=== PATIENT | female | born 1985 | race African-American/Black ===

== ENCOUNTER 2018-08-03 12:28 | Observation (INO) ==
[2018-08-03] MEDS ORDERED: ONDANSETRON 4 MG/2 ML VIAL IV PRN (14:02)
[2018-08-03] MEDS ORDERED: ACETAMINOPHEN 325 MG TABLET PO PRN (14:02)
[2018-08-03] MEDS ORDERED: SODIUM CHLORIDE 0.9% 1,000 ML IV PRN (14:04)
[2018-08-03 15:25] LABS: % Iron Saturation 15.2 % (18-50); Ferritin 4.4 ng/ml (8-252)
[2018-08-04 01:01] LABS: Hematocrit 27.4 VOL% (35.7-47.0); Hemoglobin 7.9 GM/DL (12.0-16.0)
[2018-08-04 10:06] VITALS: BP 97/79
== END 2018-08-04 11:00 | disposition home or self-care (01) ==
LOC: N.5E
PROVIDERS: ADMIT Family Medicine; ATTEND Family Medicine

== ENCOUNTER 2018-08-11 05:39 | Inpatient (IN) ==
[2018-08-09 12:53] LABS: Apearance,Urine CLEAR (Clear); Bacteria,Urine Occasional /HPF (Few); Bilirubin,Urine Negative (Negative); Blood, Urine Moderate mg/dL (Negative); Glucose,Urine (UA) Negative (Negative); Ketones,Urine Negative (Negative); Nitrite,Urine Negative (Negative); Protein,Urine Negative; Squamous Epithelial Cell,Urine Occasional /HPF (0-10); Trichomonas,Urine Occasional /HPF (<1); Urine Color Yellow (Yellow); Urine Specific Gravity 1.006 (1.001-1.035)
[2018-08-09 12:54] LABS: RBC,Urine 3 /HPF (0-4); Urine Urobilinogen < 2.0 EU/DL (0.2-1.0)
[2018-08-09 13:02] LABS: Basophils % 0.2 % (0.0-0.8); Eosinophils # 0.1 10*3/uL (0.0-0.87); Eosinophils % 0.9 % (0.00-10.9); Hematocrit 34.3 VOL% (35.7-47.0); Hemoglobin 10.1 GM/DL (12.0-16.0); Immature Granulocytes % 1.1 %; Immature Granulocytes Absolute 0.09 #; Lymphocytes % 11.8 % (21.3-54.2); Mean Corpuscular HGB Conc 29.4 GM/DL (32-36); Mean Corpuscular Volume 82.3 FL (87-102); Mean Platelet Volume 11.5 FL (9.6-12.0); Monocytes % 4.2 % (1.7-12.7); Neutrophils % 81.8 % (38.7-73.9); Platelet Count 295 T/CUMM (130-400); Red Blood Count 4.17 MC/CUMM (3.8-5.5); Red Cell Distribution Width 23.2 % (9.3-17.3); White Blood Count 8.2 T/CUMM (4-12)
[2018-08-09 13:03] LABS: Platelet Estimate Normal
[2018-08-09 13:04] LABS: Anisocytosis 1+
[2018-08-09 13:09] LABS: Alanine Aminotransferase 16 U/L (13-56); Albumin 4.2 G/DL (3.4-5.0); Alkaline Phosphatase 63 U/L (45-117); Aspartate Amino Transferase 14 U/L (0-37); Bilirubin,Total < 0.39 MG/DL (0.2-1.0); Blood Urea Nitrogen 8 MG/DL (7-18); Calcium 9.1 MG/DL (8.5-10.1); Glucose 124 MG/DL (74-106); HDL Cholesterol 36 MG/DL (40-60); Osmolality,Calculated 275.5 MOS/KG (273-304); Risk Ratio 4.83; Total Protein 8.7 G/DL (6.4-8.3); Triglycerides 122 MG/DL (2-150); VLDL CHOLESTEROL 24.4 MG/DL
[2018-08-09 13:56] LABS: HIV Antigen/Antibody Result Nonreactive (Nonreactive)
[2018-08-11] MEDS ORDERED: BUPIVACAINE 0.5% 50 ML VIAL ONE (06:04)
[2018-08-11] MEDS ORDERED: EPINEPHrine 1 MG/ML VIAL ONE (06:05)
[2018-08-11] MEDS ORDERED: DEXAMETHASONE 4 MG/1 ML VIAL ONE ×2 (06:05→09:21)
[2018-08-11] MEDS ORDERED: AMPICILLIN/SULBACTAM 3,000 MG VIAL ONE (06:06)
[2018-08-11] MEDS: LACTATED RINGERS 1,000 ML IV SCH ×4 (06:16→19:58)
[2018-08-11] MEDS ORDERED: ACETAMINOPHEN 500 MG TABLET PO ONE (06:24)
[2018-08-11] MEDS ORDERED: GABAPENTIN 400 MG CAPSULE PO ONE (06:24)
[2018-08-11] MEDS ORDERED: AMPICILLIN/SULBACTAM 3,000 MG in SODIUM CHLORIDE 0.9% 100 ML IV ONE (06:30)
[2018-08-11] MEDS ORDERED: ACETAMINOPHEN 500 MG TABLET ONE (06:39)
[2018-08-11] MEDS ORDERED: GABAPENTIN 400 MG CAPSULE ONE (06:39)
[2018-08-11] MEDS ORDERED: MICROFIBRILLAR COLLAGEN POWDER 1 GM CAN TOP ONE (06:49)
[2018-08-11] MEDS ORDERED: LIDOCAINE 1% 5 ML VIAL ONE (07:51)
[2018-08-11] MEDS ORDERED: SUGAMMADEX 200 MG/2 ML VIAL IV ONE (08:45)
[2018-08-11] MEDS ORDERED: MAGNESIUM HYDROXIDE SUSP 30 ML UDCUP PO PRN (09:06)
[2018-08-11] MEDS ORDERED: ONDANSETRON 4 MG/2 ML VIAL IV PRN (09:06)
[2018-08-11] MEDS ORDERED: BISACODYL 10 MG SUPP RECTAL PRN (09:06)
[2018-08-11] MEDS ORDERED: BENZOCAINE/MENTHOL LOZENGE 18/BOX PO PRN (09:06)
[2018-08-11] MEDS ORDERED: ACETAMINOPHEN 325 MG TABLET PO PRN (09:06)
[2018-08-11] MEDS ORDERED: PROPOFOL 200 MG/20 ML VIAL IV ONE (09:17)
[2018-08-11] MEDS ORDERED: MIDAZOLAM 2 MG/2 ML VIAL ONE (09:19)
[2018-08-11] MEDS ORDERED: HYDROmorphone 2 MG/1 ML VIAL ONE (09:19)
[2018-08-11] MEDS ORDERED: PHENYLEPHRINE 1 MG/10 ML SYRINGE IV ONE (09:20)
[2018-08-11] MEDS ORDERED: ePHEDrine 50 MG/ML AMP ONE (09:20)
[2018-08-11] MEDS ORDERED: ROCURONIUM 100 MG/10 ML VIAL IV ONE (09:20)
[2018-08-11] MEDS ORDERED: GLYCOPYRROLATE 0.4 MG/2 ML VIAL ONE (09:20)
[2018-08-11] MEDS ORDERED: SEVOFLURANE 1 UNIT/15 MINUTE INH ONE (09:21)
[2018-08-11] MEDS ORDERED: KETOROLAC 30 MG/1 ML VIAL ONE (09:21)
[2018-08-11] MEDS: HYDROmorphone 2 MG/1 ML VIAL IV PRN ×4 (09:32→10:00)
[2018-08-11 10:59] LABS: Apearance,Urine CLEAR (Clear); Bilirubin,Urine Negative (Negative); Blood, Urine Negative (Negative); Glucose,Urine (UA) Negative (Negative); Ketones,Urine Negative (Negative); Mucus,Urine Occasional /LPF (Occasional); Nitrite,Urine Negative (Negative); Protein,Urine Negative; RBC,Urine 1 /HPF (0-4); Squamous Epithelial Cell,Urine Occasional /HPF (0-10); Urine Color Straw (Yellow); Urine Specific Gravity 1.008 (1.001-1.035); Urine Urobilinogen < 2.0 EU/DL (0.2-1.0); WBC,Urine <1 /HPF (0-6)
[2018-08-11 12:04] LABS: Basophils % 0.1 % (0.0-0.8); Hematocrit 29.5 VOL% (35.7-47.0); Hemoglobin 8.8 GM/DL (12.0-16.0); Immature Granulocytes % 0.5 %; Immature Granulocytes Absolute 0.07 #; Lymphocytes # 0.2 10*3/uL (1.4-4.0); Lymphocytes % 1.5 % (21.3-54.2); Mean Corpuscular HGB Conc 29.8 GM/DL (32-36); Mean Platelet Volume 10.8 FL (9.6-12.0); Monocytes % 0.9 % (1.7-12.7); Platelet Count 209 T/CUMM (130-400); Red Blood Count 3.51 MC/CUMM (3.8-5.5); Red Cell Distribution Width 23.6 % (9.3-17.3); White Blood Count 13.6 T/CUMM (4-12)
[2018-08-11 12:31] LABS: Anisocytosis 1+; Band Neutrophils 22 % (0-10); Lymphocytes 2 % (20-55); Platelet Estimate Normal; Segmented Neutrophils 76 % (50-85); Total Cells Counted 100
[2018-08-11] MEDS ORDERED: KETOROLAC 30 MG/1 ML VIAL IV PRN (14:34)
[2018-08-11] MEDS: ceFAZolin 1,000 MG in SYRINGE 1 EACH IV SCH (14:49)
[2018-08-11] MEDS ORDERED: MEPERIDINE 25 MG/1 ML VIAL IV PRN (15:50)
[2018-08-11] MEDS ORDERED: MEPERIDINE 25 MG/1 ML VIAL ONE (15:51)
[2018-08-11] MEDS: IBUPROFEN 800 MG TABLET PO PRN (19:54)
[2018-08-11] MEDS: DOCUSATE SODIUM 100 MG CAPSULE PO PRN (19:54)
[2018-08-11] MEDS ORDERED: oxyCODONE/ACETAMINOPHEN 5-325 MG TABLET ONE (23:56)
[2018-08-11] MEDS ORDERED: oxyCODONE/ACETAMINOPHEN 5-325 MG TABLET PO PRN (23:59)
[2018-08-12] MEDS: ceFAZolin 1,000 MG in SYRINGE 1 EACH IV SCH (00:03)
[2018-08-12 04:11] LABS: Basophils % 0.1 % (0.0-0.8); Eosinophils % 0.4 % (0.00-10.9); Hematocrit 26.4 VOL% (35.7-47.0); Hemoglobin 7.7 GM/DL (12.0-16.0); Immature Granulocytes % 0.7 %; Immature Granulocytes Absolute 0.07 #; Lymphocytes # 1.7 10*3/uL (1.4-4.0); Lymphocytes % 16.6 % (21.3-54.2); Mean Corpuscular HGB Conc 29.2 GM/DL (32-36); Mean Corpuscular Volume 85.7 FL (87-102); Mean Platelet Volume 11.3 FL (9.6-12.0); Monocytes % 7.3 % (1.7-12.7); Neutrophils % 74.9 % (38.7-73.9); Platelet Count 184 T/CUMM (130-400); Red Blood Count 3.08 MC/CUMM (3.8-5.5); Red Cell Distribution Width 24.1 % (9.3-17.3); White Blood Count 10.5 T/CUMM (4-12)
[2018-08-12] MEDS: IBUPROFEN 800 MG TABLET PO PRN (04:20)
[2018-08-12 05:54] LABS: Anisocytosis 1+; Hypochromasia 1+; Microcytosis 1+; Platelet Estimate Adequate; Polychromasia Few
[2018-08-12] MEDS ORDERED: SIMETHICONE CHEW 80 MG TABLET PO PRN (07:31)
[2018-08-12] MEDS ORDERED: METOCLOPRAMIDE 10 MG TABLET PO PRN (09:00)
[2018-08-12] MEDS ORDERED: FERROUS SULFATE 325 MG TABLET PO SCH (09:00)
[2018-08-12] MEDS: DOCUSATE SODIUM 100 MG CAPSULE PO PRN (09:25)
[2018-08-12 11:24] VITALS: BP 98/51
== END 2018-08-12 13:45 | disposition home or self-care (01) | DRG 743 ==
LOC: N.OR 05:39 → N.SDSINP 05:40 → N.OB 10:23
PROVIDERS: ADMIT Obstetrics & Gynecology; ATTEND Obstetrics & Gynecology